=== PATIENT | male | born 2000 | race Caucasian/White ===

== ENCOUNTER 2019-07-01 14:23 | Emergency (ER) | payer MEDICAID, OTHER ==
[~2019-07-01] VITALS: Ht 180.3 cm; Wt 119.0 kg
[~2019-07-01 14:23] MED LIST: IBUP-812 PO; NO HOME MEDS; PERM60CR19 TP; PHEL PO
[2019-07-01 14:28] VITALS: BP 139/83
[2019-07-01] MEDS ORDERED: ONDA4TAB6 PO (15:58)
== END 2019-07-01 16:04 | disposition home or self-care (01) ==
LOC: ER 14:24
DX: F07.81 Postconcussional syndrome (principal); M54.2 Cervicalgia; M25.512 Pain in left shoulder; Z88.2 Allergy status to sulfonamides; Z79.899 Other long term (current) drug therapy; V89.2XXA Person injured in unspecified motor-vehicle accident, traffic, initial encounter; Y93.89 Activity, other specified; Y92.488 Other paved roadways as the place of occurrence of the external cause; Y99.8 Other external cause status
CPT/HCPCS: 70450; 99284

== ENCOUNTER 2021-08-04 13:01 | Emergency (ER) | payer MEDICAID ==
[~2021-08-04] VITALS: Ht 182.9 cm; Wt 113.6 kg
[~2021-08-04 13:01] MED LIST changes: +ONDA4TAB6 PO
[2021-08-04 13:11] VITALS: BP 134/85
[2021-08-04] MEDS ORDERED: LIDOcaine 1% W/epiNEPHrine 1:200,000 10ml vial IJ ONE (13:40)
[2021-08-04] MEDS ORDERED: bacitracin 15gm ointment TP ONE (13:40)
[2021-08-04] MEDS ORDERED: AMOX-117 PO (14:32)
== END 2021-08-04 14:50 | disposition home or self-care (01) ==
LOC: ER 13:01
DX: L60.0 Ingrowing nail (principal); Z88.2 Allergy status to sulfonamides; Z79.2 Long term (current) use of antibiotics; Z79.899 Other long term (current) drug therapy
CPT/HCPCS: 11730; 99284; 99285

== ENCOUNTER 2022-02-21 20:57 | Emergency (ER) | payer MEDICAID, OTHER ==
[~2022-02-21] VITALS: Ht 182.9 cm; Wt 118.0 kg
[2022-02-21 21:04] VITALS: BP 144/99
[2022-02-21] MEDS ORDERED: LIDOcaine 1% 30ml preserv. free vial IJ ONE (23:50)
[2022-02-21] MEDS ORDERED: LIDOcaine 1%/PF 5ML 10 MG/ML VIAL IJ ONE (23:50)
== END 2022-02-22 01:39 | disposition home or self-care (01) ==
LOC: ER 20:57
DX: L60.0 Ingrowing nail (principal); M79.674 Pain in right toe(s); M79.675 Pain in left toe(s); Z88.2 Allergy status to sulfonamides; Z79.899 Other long term (current) drug therapy
CPT/HCPCS: 11730; 99284; J3490